=== PATIENT | female | born 1970 | race African-American/Black ===

== ENCOUNTER 2017-08-24 06:04 | Inpatient (IN) | payer OTHER ==
[2017-08-24] MEDS ORDERED: CEFAZOLIN 2 GM in DEXTROSE 5%-WATER - 50 ML IVPB ONE (06:44)
[2017-08-24] MEDS ORDERED: TRANEXAMIC ACID 1000 MG/10 ML VIAL IVPUSH ONE (06:44)
[2017-08-24] MEDS ORDERED: oxyCODONE HCL 10 MG SUSTAINED ACTING TABLET PO ONE ×3 (06:44→14:00)
[2017-08-24] MEDS ORDERED: ROPIVICAINE 0.2%/MORPH PF/KETOROLAC - 51ML DISP.SYRINGE IA ONE (06:44)
[2017-08-24 06:53] VITALS: BMI 34.8
[2017-08-24] MEDS ORDERED: VANCOMYCIN 1,000 MG VIAL (RESTRICTED TO ID ONLY) ONE (07:12)
[2017-08-24] MEDS ORDERED: ceFAZolin SODIUM 1 GM VIAL ONE (07:12)
[2017-08-24] MEDS: GABAPENTIN 300 MG CAPSULE (FP) PO ONE ×2 (07:13→20:19)
[2017-08-24] MEDS: PANTOPRAZOLE 40 MG TABLET (FP) PO ONE ×2 (07:13→20:43)
[2017-08-24] MEDS: CELECOXIB 200 MG CAPSULE PO ONE ×2 (07:13→20:18)
[2017-08-24] MEDS ORDERED: DEXAMETHASONE SOD PHOSPHATE/PF 10 MG/ML SDV ONE (07:30)
[2017-08-24] MEDS ORDERED: MIDAZOLAM HCL 2 MG/2 ML SINGLE DOSE VIAL ONE ×2 (07:30→08:39)
[2017-08-24] MEDS ORDERED: BUPIVACAINE LIPOSOME/PF (EXPAREL) 266 MG/20 ML VIAL ONE (07:30)
[2017-08-24] MEDS ORDERED: ROPIVACAINE HCL 0.5% 30ML VIAL ONE (07:30)
[2017-08-24] MEDS ORDERED: ePHEDrine SULFATE 50 MG/1 ML AMPULE ONE (07:31)
[2017-08-24] MEDS ORDERED: SUCCINYLCHOLINE CHLORIDE 200 MG/10 ML VIAL ONE ×2 (07:32)
[2017-08-24] MEDS ORDERED: PROPOFOL 20 ML ONE ×4 (07:32)
[2017-08-24] MEDS ORDERED: BUPIVACAINE HCL/PF (5 MG/ML) 30 ML VIAL IJ ONE (07:35)
--- NOTE | 2017-08-24 08:28 | HP ---
Admitting History and Physical - Admission Chief Complaint: Right knee OA History of Present Illness: Right knee pain x several years. Failed conservative mgmt with injections, medications, physical therapy. Indicated for TKA. History Source: Patient, Medical Record Limitations to Obtaining History: No Limitations - Past Medical History Cardiovascular: Yes: HTN, Hyperlipdemia ...LMP: 08/24/17 ...: No Musculoskeletal: Yes: Chronic low back pain, Osteoarthritis, Other (Herniated disc) - Smoking History Smoking history: Never smoked - Alcohol/Substance Use Hx Alcohol Use: Yes (socially) Home Medications - Allergies Allergies/Adverse Reactions: Allergies Allergy/AdvReac Type Severity Reaction Status Date / Time acetaminophen [From Percocet] Allergy Verified 08/24/17 06:33 Cephalosporins Allergy Verified 08/24/17 06:33 codeine Allergy Verified 08/24/17 06:33 oxycodone [From Percocet] Allergy Verified 08/24/17 06:33 - Home Medications Home Medications: Ambulatory Orders Meloxicam [Mobic] 15 mg PO DAILY 08/24/17 Tramadol HCl 50 mg PO BID 08/24/17 Physical Examination Vital Signs: Vital Signs Temperature 97.9 F 08/24/17 06:37 Pulse Rate 74 08/24/17 06:37 Respiratory Rate 18 08/24/17 06:37 Blood Pressure 132/86 08/24/17 06:37 O2 Sat by Pulse Oximetry (%) Constitutional: Yes: Well Nourished, No Distress, Calm Eyes: Yes: WNL, Conjunctiva Clear, EOM Intact HENT: Yes: WNL, Atraumatic, Normocephalic Neck: Yes: WNL, Supple, Trachea Midline Cardiovascular: Yes: WNL, Regular Rate and Rhythm Respiratory: Yes: WNL, Regular Gastrointestinal: Yes: WNL, Soft ...Rectal Exam: Yes: Deferred Musculoskeletal: Yes: Joint Stiffness, Joint Swelling, Muscle Pain, Muscle Weakness Extremities: Yes: WNL Edema: No Peripheral Pulses WNL: Yes Integumentary: Yes: WNL Neurological: Yes: WNL, Alert, Oriented ...Motor Strength: WNL Psychiatric: Yes: WNL, Alert, Oriented Labs: Reviewed in chart Imaging - Results X-ray: Image Reviewed Problem List - Problems (1) Osteoarthritis of right knee Code(s): M17.11 - UNILATERAL PRIMARY OSTEOARTHRITIS, RIGHT KNEE Qualifiers: Osteoarthritis type: primary Qualified Code(s): M17.11 - Unilateral primary osteoarthritis, right knee
[2017-08-24] MEDS ORDERED: MAGNESIUM HYDROX 2400MG/30ML ORAL SUSPENSION 30 ML CUP PO PRN (12:10)
[2017-08-24] MEDS ORDERED: VANCOMYCIN 1,500 MG in DEXTROSE 5%-WATER - 250 ML IVPB ONE (12:10)
[2017-08-24] MEDS ORDERED: ONDANSETRON 4 MG/2 ML VIAL IVPUSH PRN (12:10)
[2017-08-24] MEDS ORDERED: MAG HYDROX/AL HYDROX/SIMETH 30 ML UNIT-DOSE CUP PO PRN (12:10)
--- NOTE | 2017-08-24 12:10 | OP ---
Operative Note - Note: Operative Date: 08/24/17 Pre-Operative Diagnosis: right knee OA Operation: Right TKA Findings: see dictation Surgeon: Oscar Vick Cost Report Clerk: Henna Haddad Anesthesia: Spinal Estimated Blood Loss (mls): 150
[2017-08-24] MEDS ORDERED: ACETAMINOPHEN 1000 MG/100 ML VIAL (NON FORMULARY) IVPB ONE ×2 (12:11→12:30)
[2017-08-24] MEDS ORDERED: LACTATED RINGERS SOLUTION 1,000 ML IV SCH (12:15)
[2017-08-24] MEDS ORDERED: traMADol HCL 50 MG TABLET PO ONE (12:32)
[2017-08-24] MEDS ORDERED: KETOROLAC TROMETHAMINE 30 MG/1 ML VIAL IVPUSH ONE (12:35)
[2017-08-24] MEDS ORDERED: diphenhydrAMINE HCL 25 MG CAPSULE (FP) PO PRN (12:35)
[2017-08-24] MEDS ORDERED: oxyCODONE HCL 5 MG TABLET PO PRN ×2 (12:41)
--- NOTE | 2017-08-24 13:22 | SURG ---
Surgery Java Flex Developer Note Java Flex Developer: Henna Haddad PA-C Date of Service: 08/24/17 Diagnosis: Right Knee osteoarthritis Procedure: Right Total knee replacement I was present for the entirety of the operative procedure. For further detail, please refer to operative report. Visit type - Case Type Case Type: Scheduled Admission - Emergency Emergency Visit: No - New patient This patient is new to me today: Yes Date on this admission: 08/24/17
[2017-08-24] MEDS ORDERED: HYDROmorphone HCL 2 MG TABLET PO PRN (14:05)
--- NOTE | 2017-08-24 14:10 | OP ---
DATE OF OPERATION: 08/24/2017 PREOPERATIVE DIAGNOSIS: Right knee osteoarthritis. POSTOPERATIVE DIAGNOSIS: Right knee osteoarthritis. PROCEDURE: Right total knee replacement with Oneida Triathlon cementless components. ATTENDING: Blair Duenas MD VIDEO EDITOR: MANINDER Jo ANESTHESIA: Spinal plus sedation. ESTIMATED BLOOD LOSS: 150 mL. COMPLICATIONS: None. SPECIMENS: Resected bone was sent for pathological analysis. DISPOSITION: The patient was transferred to the PACU in stable condition. IMPLANTS USED: Bipin Triathlon cementless size 5 femoral component, size 4 tibial component, 32-mm patellar component, 13-mm posterior stabilized polyethylene component. INDICATIONS: This is a 46-year-old female who presented to the office complaining of severe right knee pain. She was seen and examined by Dr. Duenas and diagnosed with severe right knee osteoarthritis. She was initially treated conservatively with medications, injections, and physical therapy but continued to have severe pain and ambulatory dysfunction. She was, therefore, indicated for a total knee replacement. The risks, benefits, and alternatives to the procedure were explained to the patient in great detail, and she elected to proceed with the surgery. DESCRIPTION OF PROCEDURE: On the day of surgery, the patient was taken to the operating room and placed on the OR table. Spinal anesthesia was administered by the anesthesiologist. The patient was then positioned supine on the table, and all bony prominences were padded. The right knee was then prepped and draped in the usual sterile fashion, and intravenous antibiotics were given for infection prophylaxis. A surgical time-out was then performed with the team, and the patients identity, procedure, side, availability of implants, and the administration of antibiotics was confirmed. With the knee flexed, a midline incision was made and carried down through the subcutaneous fat to the underlying retinaculum. A medial parapatellar arthrotomy was performed. This was followed by a subperiosteal dissection of the tissue off the proximal, medial tibia. A portion of fat pad was removed from under the patellar tendon, and a small portion of the fat was excised off the distal supracondylar femur. The knee was then flexed further, and the anterior horn of the lateral meniscus was released from the midline. Next, the anterior and posterior cruciate ligaments were transected. Osteophytes were removed from both the femur and tibia. Grade 4 changes were noted diffusely throughout the knee. Hohmann retractors were then placed around the distal femur. The starting drill was used to enter the intramedullary canal. The starting point had been chosen by checking the radiographs and anatomy. Proper alignment and intramedullary placement was then confirmed by placing the long narrow rosie into the femur and also using an intramedullary goniometer. Next, the distal femoral cutting guide was adjusted to 6 degrees of valgus and pinned to the femur. The bone resection was assessed using an estefania-wing, and the goniometer was used to confirm valgus angle. An approximately 8-mm distal cut was made and the cut pieces measured. Once this was complete, the sizing guide was used to determine which size femoral component should be used. Next, the size 5 cutting block was then placed at the correct amount of external rotation, and the estefania wing was used to assure that there would be no notching of the anterior cortex of the femur. Once this was done, Hohmann retractors were used to protect the medial and lateral collateral ligaments, and all appropriate bone cuts were made. Attention was then turned to the tibia. Hohmann retractors were used to translate the tibia anteriorly and protect the collateral ligaments. The medial and lateral menisci were removed. The extramedullary tibial alignment guide was then placed and adjusted for rotation, varus/valgus, and slope. The height of the cutting block was adjusted to the level of the desired bone resection and then pinned in place. The proximal tibia was then cut with a saw and the bone was removed and measured. Once this was completed, trial components were placed, and the knee was taken through a full range of motion. Soft tissue balance was assessed in both flexion and extension and found to be appropriate. The knee was stable throughout the full range of motion. The knee was then put into extension and the patella everted. The synovium around the patella was circumscribed with electrocautery. The caliper was used to measure the patellar thickness, and a saw was then used to resect the patella at the chondro-osseous junction. The cut surface was then sized and drilled for the appropriate patellar button with care taken to medialize it. A trial patella was then placed, and the knee was again taken through a full range of motion. The knee was found to have both good balance and good patellar tracking. All of the components were then removed except the tibial base plate. The [employer] instrumentation was then used to punch the proximal tibia for the keel of the final component. All bony surfaces were then cleaned with pulsatile lavage and dried. Cementless Oneida Triathlon knee replacement components were then impacted in place and found to have a stable Press-Fit. A trial polyethylene component was placed, the knee was put into extension. Bone cement was then prepared on the back table, and the patellar button was then cemented and placed in the usual fashion. Extruded cement was removed. Once the cement had hardened, the knee was again taken through a full range of motion to assess stability, balance, and patellar tracking. All were found to be optimal, and the trial polyethylene was exchanged for the appropriately sized real implant. The wound was then thoroughly irrigated with normal saline. A 3-minute dilute Betadine lavage was performed. The knee was again irrigated with a pulse lavage device. A periarticular injection was used to locally infiltrate the capsular tissues surrounding the implant and prosthesis. No. 1 Polysorb and No. 0 VLoc 180 barbed sutures were used to close the arthrotomy. No. 1 Polysorb and 2-0 V-Lock 90 sutures were used in the subcutaneous tissues. The skin was closed using both 3-0 VLoc 90 suture in a running subcuticular fashion and Dermabond skin adhesive. Once this was completed, a sterile Aquacel dressing and compressive Trevon-wrap were applied. The patient was then awakened and taken to the PACU in stable condition. BLAIR DUENAS M.D. [id number]
[2017-08-24] MEDS: traMADol HCL 50 MG TABLET PO SCH ×2 (16:55→20:26)
[2017-08-24] MEDS: hydrOXYzine HCL 25 MG TABLET (FP) PO SCH ×2 (16:55→20:26)
[2017-08-24] MEDS: KETOROLAC TROMETHAMINE 30 MG/1 ML VIAL IVPUSH SCH ×4 (19:02→23:46)
[2017-08-24] MEDS ORDERED: VANCOMYCIN 1,500 MG in DEXTROSE 5%-WATER - 500 ML IVPB ONE (20:00)
[2017-08-24] MEDS ORDERED: DEXAMETHASONE SOD PHOSPHATE 10 MG/1 ML VIAL IVPB ONE (20:00)
[2017-08-24] MEDS: ACETAMINOPHEN 325 MG TABLET (FP) PO SCH ×2 (20:45→22:58)
[2017-08-24] MEDS: GABAPENTIN 300 MG CAPSULE (FP) PO SCH (21:08)
[2017-08-24] MEDS: SENNOSIDES/DOCUSATE COMBO (SENNA PLUS) TABLET (UD) PO SCH (21:09)
[2017-08-24] MEDS: ASCORBIC ACID 500 MG TABLET (FP) PO SCH (21:09)
[2017-08-24] MEDS: CELECOXIB 200 MG CAPSULE PO SCH (21:09)
[2017-08-25] MEDS ORDERED: oxyCODONE HCL 10 MG SUSTAINED ACTING TABLET PO SCH
[2017-08-25] MEDS: traMADol HCL 50 MG TABLET PO SCH ×4 (01:54→20:05)
[2017-08-25] MEDS: hydrOXYzine HCL 25 MG TABLET (FP) PO SCH ×5 (01:55→20:05)
[2017-08-25] MEDS: ACETAMINOPHEN 325 MG TABLET (FP) PO SCH ×5 (05:56→21:43)
[2017-08-25] MEDS: KETOROLAC TROMETHAMINE 30 MG/1 ML VIAL IVPUSH SCH (05:58)
[2017-08-25 08:09] LABS: ANION GAP 8 (8-16); BLOOD UREA NITROGEN 7 mg/dl (7-18); CALCIUM 8.8 mg/dl (8.4-10.2); CHLORIDE 102 mmol/L (98-107); CO2 24 mmol/L (22-28); GLUCOSE,RANDOM 166 mg/dl (74-106); POTASSIUM 4.9 mmol/L (3.5-5.1); SODIUM 134 mmol/L (136-145)
[2017-08-25 08:10] LABS: RBC 4.05 M/mm3 (3.60-5.2)
[2017-08-25] MEDS: ASPIRIN 325 MG TABLET PO SCH (08:24)
[2017-08-25 08:30] LABS: HEMOGLOBIN 11.7 GM/dl (10.7-15.3); MCH 28.8 pg (25.7-33.7); MCHC 33.4 g/dl (32.0-36.0); MEAN CELL VOLUME 86.3 fl (80-96); MEAN PLT VOLUME 8.8 fl (7.5-11.1); PLATELET COUNT 249 K/MM3 (134-434); RDW 13.7 % (11.6-15.6); WHITE BLOOD COUNT 16.3 K/mm3 (4.0-10.8)
[2017-08-25 08:36] LABS: CREATININE < 0.8 mg/dl (0.6-1.3)
[2017-08-25] MEDS: CELECOXIB 200 MG CAPSULE PO SCH (09:56)
[2017-08-25] MEDS: MULTIVITAMINS (DAILY MVI) TABLET (FP) PO SCH (09:56)
[2017-08-25] MEDS: ASCORBIC ACID 500 MG TABLET (FP) PO SCH ×2 (09:56→21:44)
[2017-08-25] MEDS: GABAPENTIN 300 MG CAPSULE (FP) PO SCH ×2 (09:56→21:44)
[2017-08-25] MEDS: SENNOSIDES/DOCUSATE COMBO (SENNA PLUS) TABLET (UD) PO SCH ×2 (09:57→21:43)
[2017-08-25] MEDS: PANTOPRAZOLE 40 MG TABLET (FP) PO SCH (09:57)
[2017-08-25] MEDS ORDERED: FAMOTIDINE/PF 20 MG/12 ML PUSH IVPUSH ONE (11:15)
[2017-08-25] MEDS ORDERED: MAGNESIUM HYDROX 2400MG/30ML ORAL SUSPENSION 30 ML CUP PO ONE (21:15)
[2017-08-25] MEDS ORDERED: oxyCODONE HCL 5 MG TABLET PO PRN (21:16)
[2017-08-25] MEDS ORDERED: MAGNESIUM CITRATE 300 ML BOTTLE PO PRN (21:17)
--- NOTE | 2017-08-25 21:23 | PN ---
Progress Note (short form) - Note Progress Note: Pt seen and examined. Walked 800+ feet today. Knee feels OK, but abdomen hurts and is bloated. Has not had BM or passed gas today. Sx seem to have started after starting dilaudid PO. AVSS Selected Entries 08/25/17 20:40 Temperature 98.1 F Pulse Rate 62 Respiratory 18 Rate Blood Pressure 116/68 Laboratory Tests 08/25/17 08/25/17 07:30 07:30 WBC 16.3 H Hgb 11.7 Hct 35.0 Plt Count 249 Sodium 134 L Potassium 4.9 Chloride 102 Carbon Dioxide 24 Anion Gap 8 BUN 7 Creatinine < 0.8 Random Glucose 166 H Calcium 8.8 Gen: NAD Abd: softly distended. NT RLE: c/d/i, NVID A/P POD#1 s/p R TKA 1. PT/OOB - WBAT RLE 2. D/C dilaudid - change back to oxycodone/OxyContin. Pt's "allergy" is really a reaction where she gets mild itching of her nose and ears with all opiods. She is willing to take oxycodone (with benadryl and hydroxyzine) if that will help with her constipation and bloating. 3. Laxatives ordered. 4. Hold discharge until pt has a BM and abdominal pain resolves. 5. AXR and Hospitalist consult if not better in the AM after laxatives. Problem List - Problems (1) Osteoarthritis of right knee Code(s): M17.11 - UNILATERAL PRIMARY OSTEOARTHRITIS, RIGHT KNEE Qualifiers: Osteoarthritis type: primary Qualified Code(s): M17.11 - Unilateral primary osteoarthritis, right knee
[2017-08-25] MEDS ORDERED: BISACODYL 5 MG TABLET.DR (FP) PO ONE (21:30)
[2017-08-25] MEDS: oxyCODONE HCL 10 MG SUSTAINED ACTING TABLET PO SCH (21:44)
[2017-08-26] MEDS: oxyCODONE HCL 5 MG TABLET PO PRN ×2 (03:13→06:46)
[2017-08-26] MEDS: traMADol HCL 50 MG TABLET PO SCH ×3 (03:13→16:23)
[2017-08-26] MEDS: hydrOXYzine HCL 25 MG TABLET (FP) PO SCH ×3 (03:13→16:23)
[2017-08-26] MEDS: ACETAMINOPHEN 325 MG TABLET (FP) PO SCH ×3 (06:39→16:23)
[2017-08-26] MEDS: ASPIRIN 325 MG TABLET PO SCH (07:48)
[2017-08-26 09:21] LABS: HEMATOCRIT 32.2 % (32.4-45.2); HEMOGLOBIN 10.6 GM/dL (10.7-15.3); MEAN CELL VOLUME 87.9 fl (80-96); MEAN PLT VOLUME 9.6 fl (7.5-11.1); PLATELET COUNT 223 K/MM3 (134-434); RBC 3.66 M/mm3 (3.60-5.2); RDW 14.4 % (11.6-15.6); WHITE BLOOD COUNT 13.5 K/mm3 (4.0-10.0)
[2017-08-26] MEDS: GABAPENTIN 300 MG CAPSULE (FP) PO SCH (09:35)
[2017-08-26] MEDS: oxyCODONE HCL 10 MG SUSTAINED ACTING TABLET PO SCH (09:35)
[2017-08-26] MEDS: PANTOPRAZOLE 40 MG TABLET (FP) PO SCH (09:35)
[2017-08-26] MEDS: SENNOSIDES/DOCUSATE COMBO (SENNA PLUS) TABLET (UD) PO SCH (09:36)
[2017-08-26] MEDS: MULTIVITAMINS (DAILY MVI) TABLET (FP) PO SCH (09:36)
[2017-08-26] MEDS: ASCORBIC ACID 500 MG TABLET (FP) PO SCH (09:37)
[2017-08-26] MEDS ORDERED: HYDROmorphone HCL 2 MG TABLET PO PRN (10:35)
--- NOTE | 2017-08-26 13:20 | DS ---
Physical Examination Vital Signs: Vital Signs Temperature 98.3 F 08/26/17 06:00 Pulse Rate 65 08/26/17 06:00 Respiratory Rate 18 08/26/17 06:00 Blood Pressure 106/68 08/26/17 06:00 O2 Sat by Pulse Oximetry (%) 95 08/26/17 08:02 Labs: CBC, BMP 08/26/17 07:25 08/25/17 07:30 Discharge Summary Reason For Visit: RIGHT KNEE OSTEOARTHRITIS Current Active Problems Osteoarthritis of right knee (Acute) Procedures: Principal: Right TKA Hospital Course: Admitted for elective surgery. Procedure performed without complications. Pt received postoperative antibiotic prophylaxis and DVT ppx. Ambulated with physical therapy. Stable for discharge home with outpatient followup. Condition: Stable - Instructions Diet, Activity, Other Instructions: Dr. Vick - Knee Replacement Instructions Keep the Aquacel dressing on until removed by Dr. Vick in 10-14 days - it is antibacterial and waterproof and you can shower with it on. Call the office for a follow-up appointment with Dr. Vick in 10-14 days. ~ Take one Aspirin 325mg daily for 6 weeks to prevent blood clots in your legs. Take one Pantoprazole 40mg daily for 6 weeks to protect against heartburn and ulcers. Take Bactrim (antibiotic) 2x/day for 10 days to help prevent skin infection. Take a multivitamin, stool softener, and extra vitamin C supplement daily. For pain: *Mild pain (1-3/10): Take 1 Tramadol tablet every 4 hours as needed. Moderate pain (4-6/10): Take 1 Tramadol tablet and 1 Dilaudid tablet every 4 hours as needed. Severe pain (7-10/10): Take 1 Tramadol tablet and 2 Dilaudid tablets every 4 hours as needed. Activity: You can put as much weight on the operative leg as you want. Right after you get home, there will be a physical therapist coming to your house to help you walk around and bend/straighten your knee. After your follow-up appointment, you will be sent for more intensive outpatient physical therapy which will include machines and equipment that the home therapist cannot bring to your house. Always use a walker or cane for balance and to prevent falls. Expect to see swelling/bruising from the knee all the way down to your toes. Wear the compression stocking on the right side during the day to minimize how much swelling there is in your foot/ankle. Don't wear the stocking at night. You don't have to wear a stocking on the left side. Disposition: [facility]/HOME HEALTH CARE - Home Medications Comprehensive Discharge Medication List: Ambulatory Orders Meloxicam [Mobic] 15 mg PO DAILY 08/24/17 Ascorbic Acid [Vitamin C -] 500 mg PO BID tablet 08/26/17 Aspirin [ASA -] 325 mg PO DAILY@0800 tablet 08/26/17 Diphenhydramine HCl [Benadryl Capsule -] 25 mg PO Q6H PRN capsule 08/26/17 HYDROmorphone [Dilaudid -] 2 mg PO Q4H PRN #60 tablet MDD 8 08/26/17 Multivitamins [Multivit ([facility] Formulary)] 1 tab PO DAILY tab 08/26/17 Pantoprazole Sodium [Protonix -] 40 mg PO DAILY #40 tablet.ec 08/26/17 Sennosides/Docusate Sodium [Pericolace -] 2 tablet PO BID tablet 08/26/17 Sulfamethoxazole/Trimethoprim [Bactrim Ds Tablet] 1 each PO BID #20 tablet 08/26 traMADol HCL [Ultram -] 50 mg PO Q4H PRN #90 tablet MDD 6 08/26/17
--- NOTE | 2017-08-26 13:39 | PATH ---
Surgical Pathology Report Patient Name: NOÉ NIELSON Med. Rec. #: [id number] /Age/Gender: 1970 (Age: 46) / F Account: [id number] Location: [facility] [place] MED-SURG Taken: 08/24/2017 Received: 08/24/2017 Reported: 08/26/2017 Physicians: Oscar Vick M.D. Specimen(s) Received RIGHT KNEE BONES Clinical History Right knee osteoarthritis Final Diagnosis KNEE BONES, RIGHT, TOTALLY REPLACEMENT: DEGENERATIVE JOINT DISEASE. Electronically Signed Henna Maher M.D. Gross Description Received in formalin labeled "right knee bones," is a 13.0 x 12.5 x 2.5 cm aggregate of multiple portions of bone and soft tissue. The tibial plateau measures 8.0 x 5.6 x 1.1 cm. There is a 1.1 cm in greatest dimension area of eburnation present. The remaining articular surfaces are foster-yellow and diffusely granular. The underlying trabecular bone is yellow and hard. Respiratory Therapy Manager sections are submitted in one cassette, following decalcification. 08/25/2017 [facility]08/25/2017
[2017-08-26 14:13] VITALS: BP 97/52; PULSE 76; TEMP 97.5
== END 2017-08-26 14:23 | disposition home health service (06) | DRG 302 ==
LOC: FM/S 06:04
PROVIDERS: ADMIT Student in an Organized Health Care Education/Training Program; ATTEND Student in an Organized Health Care Education/Training Program
PROC: 0SRC0JA Replacement of Right Knee Joint with Synthetic Substitute, Uncemented, Open Approach (ICD-10-PCS; principal; 2017-08-24 09:13)
DX: M17.11 Unilateral primary osteoarthritis, right knee (principal); I10 Essential (primary) hypertension; E78.5 Hyperlipidemia, unspecified; M54.5 Low back pain
CPT/HCPCS: 36415; 73560-TC-RT-FY; 80048; 84703; 85027; 88304-TC; 88311-TC; 94760; 97116-GP; 97162-GP; J0131; J1100

== ENCOUNTER 2021-02-09 16:49 | Emergency (ER) | payer BC, OTHER ==
[2021-02-09 17:01] VITALS: BMI 39.1
[2021-02-09] MEDS ORDERED: SODIUM CHLORIDE 1,000 ML IV STA (18:20)
[2021-02-09] MEDS ORDERED: ACETAMINOPHEN 1000 MG/100 ML VIAL (NON FORMULARY) IVPB ONE (18:54)
[2021-02-09] MEDS ORDERED: ACETAMINOPHEN INJECTION 100 ML IVPB ONE (18:55)
[2021-02-09 19:43] LABS: BASO % 0.5 % (0-2.0); EOS % 0.4 % (0-4.5); HEMATOCRIT 37.1 % (32.4-45.2); HEMOGLOBIN 12.2 GM/dL (10.7-15.3); LYMPH % 24.7 % (8-40); MCH 25.4 pg (25.7-33.7); MCHC 32.8 g/dl (32.0-36.0); MEAN CELL VOLUME 77.5 fl (80-96); MEAN PLT VOLUME 7.9 fl (7.5-11.1); MONO % 6.3 % (3.8-10.2); NEUT % 68.1 % (42.8-82.8); PLATELET COUNT 276 10^3/uL (134-434); RBC 4.79 M/mm3 (3.60-5.2); RDW 16.2 % (11.6-15.6); WHITE BLOOD COUNT 5.5 K/mm3 (4.0-10.0)
[2021-02-09 19:55] LABS: BLOOD UREA NITROGEN 7.2 mg/dL (7-18); CREATININE 0.7 mg/dL (0.55-1.3)
[2021-02-09 19:56] LABS: ALBUMIN 3.6 g/dl (3.4-5.0); BILIRUBIN,TOTAL 0.3 mg/dL (0.2-1); CALCIUM 8.9 mg/dL (8.5-10.1); TOT PROT 7.7 g/dl (6.4-8.2)
[2021-02-09] MEDS ORDERED: CASIRIVIMAB/IMDEVIMAB 10 ML in SODIUM CHLORIDE 100 ML IVPB ONE (21:42)
[2021-02-09 22:15] VITALS: TEMP 98.5
[2021-02-09 23:09] VITALS: BP 132/81; PULSE 72
== END 2021-02-09 23:57 | disposition home or self-care (01) ==
LOC: JER 16:49
PROC: 3E0333Z Introduction of Anti-inflammatory into Peripheral Vein, Percutaneous Approach (ICD-10-PCS; principal; 2021-02-09)
PROC: 3E03329 Introduction of Other Anti-infective into Peripheral Vein, Percutaneous Approach (ICD-10-PCS; 2021-02-09)
PROC: 3E0337Z Introduction of Electrolytic and Water Balance Substance into Peripheral Vein, Percutaneous Approach (ICD-10-PCS; 2021-02-09)
DX: U07.1 COVID-19 (principal); J12.82 Pneumonia due to coronavirus disease 2019
CPT/HCPCS: 36415; 71275-TC; 80053; 84703; 85025; 99284-25; J0131; Q0240; Q9967